=== PATIENT | male | born 1975 | race Caucasian/White ===

== ENCOUNTER 2025-02-15 16:34 | Emergency (ER) | payer OTHER, SELFPAY ==
[2025-02-15 17:13] VITALS: BP 130/83; PULSE 78; RESP 20; TEMP 36.9; O2SAT 95; BMI 27.3
--- NOTE | 2025-02-15 17:37 | XR_ITS ---
EXAMINATION: PA chest single view TECHNIQUE: Upright PA chest single view Date and time: February 15, 2025, 1748 hours, comparison December 05, 2020 INDICATIONS: Chest pain today FINDINGS: Minor prominence left ventricle Mild elevation right hemidiaphragm. No pneumonia or pulmonary edema Intact osseous structures IMPRESSION: No pneumonia or pulmonary edema
--- NOTE | 2025-02-15 17:37 | EKG_ITS ---
[facility] Test Date: 2025-02-15 Pat Name: SHIRIN BENNETT Department: Room: - Gender: Male Pest Control Service Representative: : 1975 Requested By: Petrona Elkins Order Number: [id number] Reading MD: Petrona Elkins Measurements Intervals [place] Rate: 66 P: 66 NC: 155 QRS: 45 QRSD: 96 T: 33 QT: 381 QTc: 400 Interpretive Statements SINUS RHYTHM No previous ECG available for comparison /store/S0/[id number].pdf
--- NOTE | 2025-02-15 17:38 | EDRME_ITS ---
Rapid Medical Screening Exam FORMERLY [facility], [facility] Arrival date/time: 02/15/25 16:34 This is a 50-year-old male that comes into the emergency room with complaints of chest pain difficulty breathing coughing and shortness of breath. Patient states he has had a cough for over a week. Patient states that there is no other sick contacts at home. Patient reports that prior to coming to the emergency room he was cleaning the pool and felt like he inhaled some Clorox tablets and he felt like that made him cough even more. Patient denies fever or chills. Patient denies any other symptoms. I have greeted and performed a focused initial assessment of this patient. Initial appropriate labs ordered at this time. A comprehensive ED assessment and evaluation of the patient and analysis of all test and completion of medical decision making process will be conducted by additional ED provider. Chief Complaint: Chest Pain Time Seen by Provider: 02/15/25 16:52 Vital signs: Vital Signs Temperature 98.4 F 02/15/25 17:13 Pulse Rate 78 02/15/25 17:13 Respiratory Rate 20 02/15/25 17:13 Blood Pressure 130/83 02/15/25 17:13 Pulse Oximetry (%) 95 02/15/25 17:13 Oxygen Delivery Method Room Air 02/15/25 17:13 Exam: Alert and oriented, breathing even and unlabored, skin warm and dry Clinical Impression: Chest pain
[2025-02-15] MEDS: IBUPROFEN TAB 400 MG TABLET 800 MG PO (18:09)
[2025-02-15] MEDS: ACETAMINOPHEN 500 MG TABLET 1000 MG PO (18:10)
[2025-02-15] MEDS: PROMETHAZINE/DM SYRUP 5 ML DOSE PO (18:11)
--- NOTE | 2025-02-15 18:18 | PD.EDURI ---
Upper Respiratory Inf. RME/HPI General Chief Complaint: Chest Pain Stated Complaint: CHEST PAIN, INHALED CLOROX TABLETS, COUGH Time Seen by Provider: 02/15/25 16:52 Arrival date/time: 02/15/25 16:34 50-year-old male patient with significant history of asthma, been having cough and shortness of breath that comes and goes for the last 5 days however this morning while trying to put Clorox in his swimming pool patient accidentally inhaled the fumes resulting into worsening coughing episode and shortness of breath. No fever no chest pain no other complaints noted RME / HPI RME / HPI Narrative: 02/15/25 16:34 This is a 50-year-old male that comes into the emergency room with complaints of chest pain difficulty breathing coughing and shortness of breath. Patient states he has had a cough for over a week. Patient states that there is no other sick contacts at home. Patient reports that prior to coming to the emergency room he was cleaning the pool and felt like he inhaled some Clorox tablets and he felt like that made him cough even more. Patient denies fever or chills. Patient denies any other symptoms. I have greeted and performed a focused initial assessment of this patient. Initial appropriate labs ordered at this time. A comprehensive ED assessment and evaluation of the patient and analysis of all test and completion of medical decision making process will be conducted by additional ED provider. Exam: Alert and oriented, breathing even and unlabored, skin warm and dry Impression: Chest pain Related Data Previous Rx's ?Medication ?Instructions ?Recorded pseudoephed 60 mg-DM 20 mg-guaifen 1 tab PO Q4H PRN flu symptoms #30 12/05/20 200 mg-acetaminophen 325 mg tablet tabs prednisone 50 mg tablet 50 mg PO QDAY #7 tabs 02/15/25 Allergies Allergy/AdvReac Type Severity Reaction Status Date / Time No Known Allergies Allergy Verified 02/15/25 16:38 Review of Systems Review of Systems Narrative Review of Systems: Review of system reviewed and within normal limits except mentioned in HPI ED Exam Narrative Physical exam: VITAL SIGNS: Reviewed. GENERAL APPEARANCE: Alert and interactive, follows commands, no acute distress, HEAD AND FACE: Non-traumatic. ENT: PERRL, pink conjunctivitis, eyelid no trauma, Mucous membrane moist. NECK: Supple, nontender, no nuchal rigidity. CHEST: No tenderness, no crepitus, no paradoxical movement, no retractions. LUNGS: Clear, well ventilated, symmetric, no rales, no wheezing, no ronchi, no stridor, good breath sounds bilaterally. HEART: Regular rate, regular rhythm, no murmur, no gallops. ABDOMEN: Soft, positive bowel sounds, nondistended, no guarding, nontender, no rebound, no masses, RECTAL: Deferred. GENITAL: Deferred. NEUROLOGICAL: Gross motor function intact sensory function intact, Appropriate for age. MUSCULOSKELETAL: low back nontender, full range of motion. EXTREMITIES: Nontender, full range of motion. SKIN: Color pink, dry, no rash, no lacerations, no abrasions, no contusions. LYMPHATICS: Deferred. Course Quality Measures none Orders Category Date Time Status EKG (ED ONLY) *Do not use* NOW Care 02/15/25 17:37 Completed EKG (ED Only) Stat Exams 02/15/25 17:37 Draft XR chest 1V Stat Exams 02/15/25 17:37 Completed Acetaminophen Tab [Tylenol ES Tab] Med 02/15/25 17:37 Discontinued 1,000 mg PO X1 ONE Ibuprofen Tab [Motrin Tab] Med 02/15/25 17:37 Discontinued 800 mg PO X1 ONE Promethazine/Dextromethorph [Phenergan Dm Syrup] Med 02/15/25 17:37 Discontinued 5 ml PO X1 ONE predniSONE Med 02/15/25 18:18 Once 60 mg PO X1 ONE Vital Signs Vital signs: Vital Signs Temperature 98.4 F 02/15/25 17:13 Pulse Rate 78 02/15/25 17:13 Respiratory Rate 20 02/15/25 17:13 Blood Pressure 130/83 02/15/25 17:13 Pulse Oximetry (%) 95 02/15/25 17:13 Oxygen Delivery Method Room Air 02/15/25 17:13 Upper Respiratory Infection MDM Narrative MDM Narrative:: 50-year-old male patient with significant history of asthma, been having cough and shortness of breath that comes and goes for the last 5 days however this morning while trying to put Clorox in his swimming pool patient accidentally inhaled the fumes resulting into worsening coughing episode and shortness of breath. No fever no chest pain no other complaints noted I personally reviewed and interpreted the x-ray of this patient. There is no acute abnormalities found, no infiltrates no pneumothorax no hemothorax normal chest x-ray. Review of other structures was without significant abnormal findings also. I additionally reviewed the radiologist report and agree with the interpretation. EKG normal showed normal sinus rhythm, ventricular rate of 66 bpm, no ST segment elevation or depression noted. Patient received Tylenol Motrin promethazine and prednisone with significant improvement of symptoms was noted to be satting 95% on room air stable for discharge home Patient data External records reviewed:: None Clinical information provided by:: none Social determinants that could affect healthcare access:: none Patient has the following chronic illnesses:: History of asthma How is presenting disease/condition affected by chronic disease/condition?: exacerbated by Evaluation data The following diagnostics were reviewed and interpreted by me:: radiology exam(s) and EKG tracing(s) Lab and/or radiology exams considered but not ordered:: None Interpretation Summary: See above Medications / Prescriptions Medications or Prescriptions considered but not ordered:: None Medication administrations:: Medication Administration History Discontinued Medications Acetaminophen (Acetaminophen 500 Mg Tablet) 1,000 mg PO X1 ONE Stop: 02/15/25 17:38 Last Admin: 02/15/25 18:10 Dose: 1,000 mg Documented By: OA Ibuprofen (Ibuprofen Tab 400 Mg Tablet) 800 mg PO X1 ONE Stop: 02/15/25 17:38 Last Admin: 02/15/25 18:09 Dose: 800 mg Documented By: OA Promethazine HCl/Dextromethorphan (Promethazine/Dm Syrup 5 Ml Dose) 5 ml PO X1 ONE; Protocol Stop: 02/15/25 17:38 Last Admin: 02/15/25 18:11 Dose: 5 ml Documented By: OA See above Consultations Consultation(s) initiated? (list below): No Diagnosis Upper Respiratory Differential Diagnosis: upper respiratory infection, bronchitis and other (Shortness of breath, history of asthma) Most likely diagnosis given after review of the tests above:: Cough, history of asthma Admission Indicated Admission indicated?: not indicated Admission Request Was there a request for admission?: No Disposition Plan Disposition Plan: Discharge Discharge Attestation Discharge Attestation: The patient was given an opportunity to ask questions and understood the discharge instructions. Discharge instructions specifically effects, indications for sooner follow up or return to the emergency department, and the expected course of current diagnosis. Patient condition: Stable Discharge Plan Plan Patient Disposition: HOME (Self Care) Discharge Disposition comment: Stable Prescriptions/Referrals Prescriptions/Med Rec: New prednisone 50 mg tablet 50 mg PO QDAY Qty: 7 0RF No Action [id number]-acetaminophen [id number] mg tablet 1 tab PO Q4H PRN (Reason: flu symptoms) Qty: 30 0RF Referrals: Patrice Lott MD [Primary Care Provider, Internal Medicine] - In 1 week Problem List Clinical Impression: Shortness of breath, Cough, History of asthma Patient/Caregiver Discharge Instructions Discharge Activity: activity as tolerated Education Materials: Shortness of Breath Maximizing ... Additional Instructions: Thank you for the opportunity for serving you today. You are stable for discharged . You are advised to: Follow-up with your PCP in 1 to 2 days Return to ED for worsening of symptoms Increase oral fluids Take medication as prescribed Print Language: Bruneian Stand Alone Forms: [employer]ero Award Info., Patient Portal Info Letter PA/NOLAN Supervising Physician PA/NOLAN Supervising Physician: MD Anyi
== END 2025-02-15 18:32 | disposition home or self-care (01) ==
PROVIDERS: Emergency Provider Nurse Practitioner Family; PCP Internal Medicine
DX: R06.02 Shortness of breath (principal); R05.9 Cough, unspecified; J45.909 Unspecified asthma, uncomplicated; R07.9 Chest pain, unspecified
CPT/HCPCS: 71045; 93005; 99283; J7512; A9270